=== PATIENT | male | born 1985 | race Caucasian/White ===

== ENCOUNTER 2016-09-23 09:50 | Emergency (ER) | payer BC ==
--- NOTE | ~2016-09-23 | ER ---
PATIENT'S NAME: KENNETH TSE [facility] AGE: 31 Y [address] ROOM: [place] [address] LOCATION: [facility] ADMIT DATE: 09/23/2016 ER/Outpatient Report DISCHARGE DATE: 09/23/2016 FAMILY PHYSICIAN: PHYSICIAN, MIKAYLA ATTENDING PHYSICIAN: Walker Sandhu Time of Arrival: 0950 hours. Time of Evaluation/Seen: 1120 hours. IDENTIFICATION: A 31-year-old male. CHIEF COMPLAINT: Chest pain. HISTORY OF PRESENT ILLNESS: The patient is a 31-year-old male who developed chest pain at 2:00 a.m. this morning, midsternal, and worse with a deep breath. No known injury. No change in his activities. He does do a lot of lifting with work, but that has not changed. He has never had pain like this before. PAST MEDICAL HISTORY: ALLERGIES: NO KNOWN DRUG ALLERGIES. CURRENT MEDICATIONS: None. MEDICAL PROBLEMS: Denies. PAST SURGICAL HISTORY: No prior surgeries or hospitalizations. FAMILY HISTORY: No family history of premature coronary artery disease. REVIEW OF SYSTEMS: All systems reviewed and negative other than what is noted in the HPI. SOCIAL HISTORY: The patient travels for his work. He is here now for 3 to 4 months. Smokes a half pack per day. Alcohol, rare. Drug use, denies. PATIENT'S NAME: KENNETH TSE [facility] AGE: 31 Y [address] ROOM: [place] [address] LOCATION: [facility] ADMIT DATE: 09/23/2016 ER/Outpatient Report DISCHARGE DATE: 09/23/2016 FAMILY PHYSICIAN: PHYSICIAN, MIKAYLA ATTENDING PHYSICIAN: Walker Sandhu PHYSICAL EXAMINATION: VITAL SIGNS: Height 5 feet 9 inches and weight 69 kg. Blood pressure 144/90, pulse 105, respiratory rate 16, temperature 97.0, and saturations 99% on room air. GENERAL: A 31-year-old male in no acute distress. HEENT: Unremarkable. LUNGS: Clear to auscultation. HEART: Regular rate and rhythm. ABDOMEN: Soft, nondistended, nontender. SKIN: [place], warm, and dry. No lesions or rashes noted. NEUROLOGIC: The patient is alert and oriented. No cranial nerve defect. EXTREMITIES: No lower extremity edema. No calf tenderness. LABORATORY DATA AND IMAGING STUDIES: EKG; normal sinus rhythm at 88 beats per minute. No acute ST elevation or depression. Hemoglobin 15.4, hematocrit 45.8, platelets 244,000, white count 11.9, and normal differential. INR 1.0. D-dimer is less than 0.19. Sodium 141, potassium 4.1, chloride 111, CO2 of 26, BUN 13, creatinine 1.0, and blood sugar 90. Liver enzymes are normal. Magnesium 2.3. CK is 123, CK-MB is less than 0.5, and troponin I is less than 0.040. Chest x-ray, no acute process. Pending Radiology over-read. EMERGENCY DEPARTMENT COURSE: Toradol was given with some relief. IMPRESSION AND PLAN: Pleuritic chest pain. Plan; ice or heat. Ibuprofen 400 mg 3 to 4 times daily with food. No heavy lifting. No work until followup with primary care, and follow up with primary care within the next week. The patient understands and all questions have been answered. WALKER SANDHU MD CAR/modl /[id number] d: 09/23/16 1414 t: 09/24/16 1735, OUTPATIENT REPORT
[2016-09-23 10:29] LABS: BASOPHIL # 0.1 K/uL (0.0-0.2); BASOPHIL % 0.4 %; EOSINOPHIL # 0.1 K/uL (0.0-0.5); EOSINOPHIL % 0.8 %; HEMATOCRIT 45.8 % (37.0-53.0); HEMOGLOBIN 15.4 g/dL (12.0-17.0); IMMATURE GRANULOCYTE # 0.1 K/uL (0.0-0.3); IMMATURE GRANULOCYTE % 0.4 %; LYMPHOCYTE # 1.7 K/uL (0.8-4.0); LYMPHOCYTE % 14.7 %; MCH 29.5 pg (27.0-34.0); MCHC 33.6 gm/dL (32.0-36.5); MCV 87.7 fl (83.0-98.0); MONOCYTE # 1.1 K/uL (0.0-1.0); MONOCYTE % 9.4 %; MPV 9.9 fl (9.4-12.4); NEUTROPHIL # (ANC) 8.8 K/uL (1.4-9.0); NEUTROPHIL % 74.3 %; NRBC % 0 /100WBC (0-0.00); PLATELET COUNT 244 K/uL (150-450); RBC 5.22 M/uL (4.00-6.00); RDW-CV 12.1 % (11.9-14.6); WBC 11.9 K/uL (4.0-11.0)
[2016-09-23 10:36] LABS: PROTIME 10.5 SECONDS (9.8-11.4); PTT 26 SECONDS (25-32)
[2016-09-23 10:46] LABS: ALBUMIN 3.9 gm/dL (3.5-5.0); ALK PHOS 60 IU/L (33-138); ALT 22 IU/L (12-78); ANION GAP 8.1 (10.0-19.0); AST 12 IU/L (10-40); BLOOD UREA NITROGEN 13 mg/dL (6-24); CALCIUM 8.8 mg/dL (8.5-10.5); CHLORIDE 111 mMol/L (96-110); CO2 26 mMol/L (22-32); CPK 123 IU/L (35-332); MAGNESIUM 2.3 mg/dL (1.8-2.6); POTASSIUM 4.1 mMol/L (3.7-5.1); SODIUM 141 mMol/L (135-145); TOTAL BILIRUBIN 0.3 mg/dL (0.0-1.5); TOTAL PROTEIN 7.1 g/dL (6.0-8.4)
== END 2016-09-23 12:29 | disposition disaster alternative care site (69) ==
LOC: GMED 09:50
PROVIDERS: Family Medicine
DX: R07.81 Pleurodynia (principal)
CPT/HCPCS: J1885